=== PATIENT | female | born 1980 | race Caucasian/White ===

== ENCOUNTER 2018-04-24 09:28 | Day surgery (SDC) | payer OTHER ==
[~2018-04-24] VITALS: Ht 154.9 cm; Wt 66.2 kg
[~2018-04-24 09:28] MED LIST: CYCLOBENZAPRINE10 MG PO; JUNEL1 EAC1 PO; KLONOPIN0.5 M1 PO; LYRICA25 MG PO; OMEPRAZOLE40 M1 PO; PROVENTIL HFA6.7 GM IH; SERTRALINE HCL50 MG PO; TRAMADOL HCL50 MG PO; ZOFRAN4 MG PO; ZOLOFT100 MG PO
== END 2018-04-24 10:50 | disposition home or self-care (01) ==
LOC: PAIN 09:28 → SDC 10:00 → PAIN 10:00
DX: M46.1 Sacroiliitis, not elsewhere classified (principal); M53.3 Sacrococcygeal disorders, not elsewhere classified; M96.1 Postlaminectomy syndrome, not elsewhere classified; G89.29 Other chronic pain; N80.9 Endometriosis, unspecified; F32.9 Major depressive disorder, single episode, unspecified; Z88.1 Allergy status to other antibiotic agents; Z88.5 Allergy status to narcotic agent
CPT/HCPCS: J1030; J2250; S0020